=== PATIENT | male | born 2000 | race African-American/Black ===

== ENCOUNTER 2024-02-13 16:20 | Emergency (ER) | payer MEDICAID, OTHER ==
[~2024-02-13] VITALS: Ht 175.3 cm; Wt 65.0 kg
[2024-02-13 16:24] VITALS: PULSE 110; O2SAT 99
[2024-02-13 16:27] VITALS: BP 124/79; RESP 18; TEMP 97.9; O2SAT 99
== END 2024-02-13 17:01 | disposition left against medical advice (07) ==
LOC: ER 16:20
DX: R19.7 Diarrhea, unspecified (principal); R50.9 Fever, unspecified; Z53.21 Procedure and treatment not carried out due to patient leaving prior to being seen by health care provider